=== PATIENT | male | born 1985 | race Caucasian/White ===

== ENCOUNTER 2017-04-06 08:31 | Emergency (ER) | payer OTHER ==
[2017-04-06 09:12] LABS: Hematocrit 45.8 % (42.0-52.0); Hemoglobin 15.7 gm/dL (13.5-18.0); Mean Cell Volume 88.2 fl (78-100); Mean Corpuscular Hemoglobin 30.3 pg (27-31); Mean Corpuscular Hgb Conc 34.3 g/dl (32-36); Mean Platelet Volume 9.9 fl (6.0-9.5); Neutrophil # 4.8 K/mm3 (1.3-6.0); Neutrophil % 63.2 % (42-75.0); Platelet Count 252 K/mm3 (150-450); Red Blood Count 5.19 M/mm3 (4.7-6.0); White Blood Count 7.5 K/mm3 (4.0-10.5)
[2017-04-06 09:33] LABS: ALT 79 U/L (19-67); AST 38 U/L (0-48); Albumin * 4.3 gm/dl (3.4-5.0); Alkaline Phosphatase * 95 U/L (50-170); Anion Gap 14.7 mmol/L (6.8-13.8); Bilirubin, Total 1.3 mg/dL (0.0-1.1); Blood Urea Nitrogen 13 mg/dL (6-23); Ca. Corrected For Albumin 8.4 mg/dL (8.4-10.2); Carbon Dioxide 23.2 mmol/L (24-32.6); Chloride 102 mmol/L (97-106); Glucose * 99 mg/dL (70-110); Potassium 3.9 mmol/L (3.4-4.6); Salicylate Less than 2.8 mg/dL (2.8-20.0); Sodium 136 mmol/L (132-142); TSH * 0.882 uIU/mL (0.358-3.74)
[2017-04-06 09:47] LABS: Urine Bilirubin 1 mg/dl (NEGATIVE); Urine Blood Negative /ul (NEGATIVE); Urine Ketone 5 mg/dL (NEGATIVE); Urine Nitrite Negative (NEGATIVE); Urine Protein Negative (NEGATIVE); Urine Specific Gravity >=1.030 SP.GR. (1.005-1.030); Urine Urobilinogen Normal (NORMAL)
[2017-04-06 09:58] LABS: Urine Appearance Slightly Cloudy; Urine Bacteria 3+; Urine Color Yellow; Urine RBC None Seen /hpf (0-5)
[2017-04-06 10:02] LABS: Cocaine Ur Negative (NEGATIVE); Urine Barbiturate Negative (NEGATIVE); Urine PCP Negative (NEGATIVE)
[2017-04-06 10:04] LABS: Urine Benzodiazepines Positive (NEGATIVE); Urine Opiates Positive (NEGATIVE); Urine THC Positive (NEGATIVE)
--- OUTSIDE RECORDS SUMMARY | 2017-04-06 10:56 | XMS REPORT | Continuity of Care Document ---
:1985 Author Organization [facility] [place] [address] Phone [phone] Care Team Providers Name Role Phone Unavailable Primary Care Provider Unavailable Active Allergies and Adverse Reactions Allergen Noted Date Severity Reactions Comments Codeine 05/20/2011 Current Medications Always verify current medications with the patient because some medications mayno longer be current as of this document. Prescription Sig. Disp. Refills Start Date End Date Status doxycycline (VIBRAMYCIN) Take 1 Cap by 18 Cap 0 05/20/2011 Active 100 MG capsule mouth every 12 hours. Active Problems Problem Noted Date Polysubstance dependence ([facility]) 05/20/2011 Antisocial personality disorder 05/20/2011 Mood disorder ([facility]) 05/20/2011 Social History Tobacco Use Types Packs/Day Years Used Date Never Assessed Last Filed Vital Signs Vital Sign Reading Time Taken Blood Pressure 140/87 05/20/2011 11:51 AM CDT Pulse 70 05/20/2011 11:51 AM CDT Temperature 36.2 C (97.2 F) 05/20/2011 11:51 AM CDT Respiratory Rate 16 05/20/2011 11:51 AM CDT Height 1.778 m (5' 10") 05/20/2011 6:51 AM CDT Weight 104.645 kg (230 lb 11.2 oz) 05/20/2011 6:51 AM CDT Body Mass Index 33.1 05/20/2011 6:51 AM CDT Oxygen Saturation - - Plan of Care Health Maintenance Due Date Last Done Comments McF Hmt Dtap/Tdap/Td Vaccines (1 - Tdap) 02/01/2004 McF Hmt Influenza 06/13/2017 Results from Last 3 Months Not on file
--- OUTSIDE RECORDS SUMMARY | 2017-04-06 10:56 | XMS REPORT | Continuity of Care Document ---
:1985 Author Organization [facility] ([facility]) Address [address] [place] [address] Phone [phone] Care Team Providers Name Role Phone Floyd Russo Primary Care Provider [phone] Source Comments This disclosure is being made pursuant to the Care Everywhere program, applicable federal and state laws, and may not contain all informaitonavailable regarding this patient.[facility] ([facility]) Active Allergies and Adverse Reactions Allergen Noted Date Severity Reactions Comments Codeine Angioedema Iodine Unknown Current Medications Prescription Sig. Disp. Refills Start Date End Date Status lisdexamfetamine Take 30 mg by mouth Active (VYVANSE) 30 mg capsule daily. venlafaxine (EFFEXOR XR) Take 300 mg by Active 150 mg XR capsule mouth daily. depression ZALEPLON (SONATA PO) Take by mouth. 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5 C (97.7 F) 06/16/2013 6:15 PM CDT Respiratory Rate 16 06/16/2013 6:15 PM CDT Height 1.77 m (5' 9.69") 10/29/2012 10:20 AM INFORMATION ANALYST Weight 119.75 kg (264 lb) 10/29/2012 10:20 AM INFORMATION ANALYST Body Mass Index 38.22 10/29/2012 10:20 AM INFORMATION ANALYST Oxygen Saturation 98% 06/16/2013 6:15 PM CDT Plan of Care Health Maintenance Due Date Last Done Comments Hepatitis B Vaccine (1 of 3 - Primary Series) 1985 Tdap Vaccine 02/01/1996 Lipid Disorder Screening 2003 MMR Vaccine 2003 Td Vaccine 2003 Varicella Vaccine (1 of 2 - Adult - No Evidence of 2003 Immunity) Pneumococcal Vaccine (1 of 1 - PPSV23) 02/01/2004 Influenza Vaccine: Seasonal (#1) 06/13/2016 Results from Last 3 Months Not on file
--- NOTE | 2017-04-06 11:07 | ERNOTE ---
Psychological HPI - General Chief Complaint: Psychiatric Problem Source: Reports: patient, other Exam Limitations: Reports: no limitations - Immun/Allergies/Home Medications Allergies/Adverse Reactions: Allergies iodine Allergy (Intermediate, Verified 04/06/17 08:48) Hives codeine [Codeine] Allergy (Verified 04/06/17 08:48) throat swelling naproxen Adverse Reaction (Mild, Verified 04/06/17 08:48) nausea,abdominal pain zolpidem tartrate [From Ambien] Adverse Reaction (Verified 04/06/17 08:48) Home Medications: HOME MEDICATIONS NK [No Home Medication] 04/06/17 [Last Taken Unknown] - History of Present Illness Narrative: Patient is brought to the ER by as he is court committed for serious mental impairment and concerns that he could be harming himself. He has an extensive history of anxiety, drug use and suicide attempts, tired to hang himself once and had multiple overdose attempts. He is still currently using drugs (opiates yesterday, meth and THC two days ago). He denies any current suicidal ideation or plan,feels anxious, denies any current stressors. He lives with his grandmother, does not have a job, has been off his medications as he has not been able to find them. He was dismissed from the local psychiatrist office recently (for cussing in the office?) Time Seen by Provider: 04/06/17 10:46 Arrived by: Reports: police Review of Systems - Review of Systems Constitutional: Absent: recent illness, fever EYE: Absent: vision changes ENT: Absent: nose congestion, sore throat Respiratory: Present: shortness of breath. Absent: cough Cardiology: Absent: chest pain Gastrointestinal/Abdominal: Present: nausea. Absent: vomiting, diarrhea, abdominal pain Genitourinary: Present: no symptoms reported Musculoskeletal: Absent: back pain, neck pain Skin: Absent: rash Neurological: Present: anxiety, tingling - hands and mouth. Absent: headache - Patient's Past Medical History Patient History - Medical: Anxiety, Depression, Other - substance abuse Patient History - Cardiac/Respiratory: Asthma Patient History - Cancer: No Hx of Cancer Patient History - Surgical Procedures: Other Patient History - Other: None - Family History Mother Family History - Medical: Osteoporosis - Social History Living Situations: home Abuse History: No History of abuse Psych History: Hx of Depression, Hx of Bipolar Disorder Smoking Status: Current every day smoker Do you dip or chew tobacco: No Alcohol Use: rarely Drug Use: benzodiazepine, marijuana, meth, other - Immunizations Immunizations Up to Date: Yes Hx Pneumococcal Vaccination: No History of Influenza Vaccine: No Physical Exam - Physical Exam General Appearance: Present: wd/wn, alert, no apparent distress, anxious Eye Exam: Normal inspection: bilateral, PERRL: bilateral Respiratory: Present: no respiratory distress, normal breath sounds, no accessory muscle use, lungs clear Cardiovascular/Chest: Present: regular rate, rhythm, no murmur Gastrointestinal/Abdominal: Present: nontender, soft Extremity Exam: Present: normal inspection Neurological Exam: Present: alert, oriented, other - anxious, cooperative Skin Exam: Present: normal color, warm/dry ED Progress - Results and Orders Patient's Lab Results:: I have reviewed the patient's lab results. - Vital Signs Patient's Vital Signs:: I have reviewed the patient's vital signs. Vital Signs: Vital Signs 04/06/17 09:02 Temperature 37.3 C Pulse Rate 81 Respiratory 20 Rate Blood Pressure 138/96 O2 Sat by Pulse 98 Oximetry - Progress/Reassessment Chief Complaint: Psychiatric Problem Progress Note-Subjective: 04/06/17 10:58 call to psychiatry office, both providers are out of office till 04/11, patient was dismissed form clinic for verbally disruptive and threatening behaviour. 04/06/17 12:49 patient very anxious requesting anxiety medications, was on ativan, will give one dose po Departure Clinical Impression: Suicidal ideation Major depression Qualifiers: Major depression recurrence: recurrent Active/Remission status: currently active Major depression episode severity: severe Psychotic features: without psychotic features Qualified Code(s): F33.2 - Major depressive disorder, recurrent severe without psychotic features UTI (urinary tract infection) Qualifiers: Urinary tract infection type: acute cystitis Hematuria presence: without hematuria Qualified Code(s): N30.00 - Acute cystitis without hematuria - Departure Disposition: Other health care facility Condition: Good
[2017-04-06] MEDS ORDERED: LORazepam 1 MG TABLET PO ONE ×2 (12:49→15:38)
[2017-04-06] MEDS ORDERED: LORazepam 1 MG TABLET ONE ×2 (12:50→15:38)
[2017-04-06] MEDS ORDERED: SULFAMETHOXAZOLE/TRIMETHOPRIM 1 TAB TABLET PO ONE (15:38)
[2017-04-06] MEDS ORDERED: SULFAMETHOXAZOLE/TRIMETHOPRIM 1 TAB TABLET ONE (15:39)
[2017-04-06 16:16] VITALS: BP 185/79
== END 2017-04-06 16:33 | disposition short-term general hospital (02) ==
LOC: ER 08:31
DX: R45.851 Suicidal ideations (principal); F33.2 Major depressive disorder, recurrent severe without psychotic features; N30.00 Acute cystitis without hematuria; F17.200 Nicotine dependence, unspecified, uncomplicated
CPT/HCPCS: 36415; 80053; 80307; 81001; 84443; 85025; 87086; 93005; 99284; G0480; G0481

== ENCOUNTER 2017-07-10 10:51 | Emergency (ER) | payer OTHER ==
[2017-07-10] MEDS ORDERED: NICOTINE 21 MG PATC TD ONE (11:14)
[2017-07-10 11:17] LABS: Urine Bilirubin Negative (NEGATIVE); Urine Blood Negative /ul (NEGATIVE); Urine Ketone Negative (NEGATIVE); Urine Nitrite Negative (NEGATIVE); Urine Protein Negative (NEGATIVE); Urine Specific Gravity <=1.005 SP.GR. (1.005-1.030); Urine Urobilinogen Normal (NORMAL)
[2017-07-10] MEDS: NICOTINE 21 MG PATC TD ONE (11:22)
[2017-07-10 11:26] LABS: Urine Appearance Clear; Urine Bacteria None Seen; Urine Color Yellow; Urine RBC None Seen /hpf (0-5)
[2017-07-10 11:28] LABS: Cocaine Ur Negative (NEGATIVE); Urine Barbiturate Negative (NEGATIVE); Urine Benzodiazepines Negative (NEGATIVE); Urine Opiates Negative (NEGATIVE); Urine PCP Negative (NEGATIVE); Urine THC Negative (NEGATIVE)
[2017-07-10] MEDS ORDERED: lamoTRIgine 100 MG TABLET PO SCH (11:30)
--- NOTE | 2017-07-10 11:32 | ERNOTE ---
Psychological HPI - General Chief Complaint: Psychiatric Problem Source: Reports: patient Exam Limitations: Reports: no limitations - Immun/Allergies/Home Medications Allergies/Adverse Reactions: Allergies iodine Allergy (Intermediate, Verified 07/10/17 10:59) Hives codeine [Codeine] Allergy (Verified 07/10/17 10:59) throat swelling naproxen Adverse Reaction (Mild, Verified 07/10/17 10:59) nausea,abdominal pain zolpidem tartrate [From Ambien] Adverse Reaction (Verified 07/10/17 10:59) Home Medications: HOME MEDICATIONS ALPRAZolam [Xanax] 1 mg PO TID PRN #60 tab 07/10/17 [Last Taken Unknown] ALPRAZolam [Xanax] 2 mg PO TID PRN 07/10/17 [Last Taken Unknown] Venlafaxine HCl [Effexor] 75 mg PO DAILY #14 tablet 07/10/17 [Last Taken Unknown ] traZODone HCL [Trazodone HCl] 50 mg PO HS 07/10/17 [Last Taken Unknown] - History of Present Illness Narrative: Patient is a known borderline personality disorder with components of bipolar disorder as well. He has been out of his medications for approximately 2-3 months and his behaviors become somewhat erratic. He was running a low on his medications in March and became very distraught and acted inappropriately with Dr. Ramos's office over the phone. Because of that he was terminated from their practice and has been without his medications ever since. Patient was seen by the court today and the card assembler ordered at least an evaluation of some sort and an attempt to try to get him back on his medications. Time Seen by Provider: 07/10/17 11:03 Arrived by: Reports: private car Onset/duration: Reports: gradual onset Intent: Reports: other - basically escalating anxiety Situational Problems: Reports: legal problems Associated Symptoms: Reports: other - anxiety Review of Systems - Review of Systems Constitutional: Present: See HPI EYE: Present: no symptoms reported ENT: Present: no symptoms reported Respiratory: Present: no symptoms reported Cardiology: Present: no symptoms reported Gastrointestinal/Abdominal: Present: no symptoms reported Genitourinary: Present: no symptoms reported Musculoskeletal: Present: no symptoms reported Skin: Present: no symptoms reported Neurological: Present: no symptoms reported Endocrine: Present: no symptoms reported Hematologic/Lymphatic: Present: no symptoms reported Psych: Present: See HPI, anxiety, emotional problems - Patient's Past Medical History Patient History - Medical: Anxiety, Depression, Other - borderline personality disorder, bipolar disorder Patient History - Cardiac/Respiratory: Asthma Patient History - Cancer: No Hx of Cancer Patient History - Surgical Procedures: Other Patient History - Other: None - Family History Mother Family History - Medical: Osteoporosis - Social History Living Situations: home Abuse History: No History of abuse Psych History: Hx of Depression, Hx of Bipolar Disorder Alcohol Use: rarely Drug Use: benzodiazepine, marijuana, meth, other - Immunizations Immunizations Up to Date: Yes Hx Pneumococcal Vaccination: No History of Influenza Vaccine: No Physical Exam - Physical Exam General Appearance: Present: wd/wn, alert, mild distress Eye Exam: Normal inspection: bilateral, PERRL: bilateral Ears, Nose, Throat: Present: normal ENT inspection, H, normal pharynx Neck: Present: normal inspection, nontender Respiratory: Present: no respiratory distress, normal breath sounds, no accessory muscle use, chest nontender, lungs clear Cardiovascular/Chest: Present: regular rate, rhythm, no murmur, normal peripheral pulses Gastrointestinal/Abdominal: Present: normal bowel sounds, nontender, nondistended, soft, no organomegaly Rectal Exam: Present: deferred Back Exam: Present: normal inspection, normal range of motion Extremity Exam: Present: normal inspection, non-tender, no edema, normal range of motion Neurological Exam: Present: alert, oriented, other - patient appears to be very anxious with almost pressured speech Skin Exam: Present: normal color, warm/dry Lymphatic Exam: Present: no adenopathy ED Progress - Results and Orders Patient's Lab Results:: I have reviewed the patient's lab results. - Vital Signs Patient's Vital Signs:: I have reviewed the patient's vital signs. Vital Signs: Vital Signs 07/10/17 10:54 Temperature 36.4 C L Pulse Rate 84 Respiratory 12 Rate Blood Pressure 146/84 O2 Sat by Pulse 98 Oximetry - Progress/Reassessment Chief Complaint: Psychiatric Problem Progress:: Improved Plan - Plan Plan: Patient had a good long discussion with Kerri from [facility] and she feels that the patient is safe to go home. She agrees that he needs to get into some form of therapy and he needs to get back on his medications. Patient states that he felt the best when he was on Effexor and Xanax and will write a prescription for that. He is going to get an appointment within the next 2 weeks and hopefully get him into some form of therapy and we can get some help. Patient is not a threat to himself or others and mother is here and agrees to assist in the dispensing of his medications. Departure Clinical Impression: Borderline personality disorder, PTSD (post-traumatic stress disorder) - Departure Disposition: Home self-care Condition: Good Instructions: Borderline Personality Disorder Prescriptions: ALPRAZolam [Xanax] 1 mg PO TID PRN #60 tab PRN Reason: Anxiety Venlafaxine HCl [Effexor] 75 mg PO DAILY #14 tablet
[2017-07-10] MEDS ORDERED: FAMOTIDINE 20 MG TABLET ONE (11:40)
[2017-07-10] MEDS ORDERED: ALPRAZolam 1 MG TABLET ONE (11:50)
[2017-07-10] MEDS: FAMOTIDINE 20 MG TABLET PO ONE (11:53)
[2017-07-10] MEDS: ALPRAZolam 0.25 MG TABLET PO ONE (11:53)
[2017-07-10] MEDS: lamoTRIgine 100 MG TABLET PO ONE (12:17)
[2017-07-10 19:39] VITALS: BP 132/82
== END 2017-07-10 19:43 | disposition home or self-care (01) ==
LOC: ER 10:51
DX: F60.3 Borderline personality disorder (principal); F43.10 Post-traumatic stress disorder, unspecified; F41.8 Other specified anxiety disorders

== ENCOUNTER 2017-09-26 09:31 | Emergency (ER) | payer SELFPAY ==
[2017-09-26 09:50] VITALS: BP 160/93
--- NOTE | 2017-09-26 10:22 | ERNOTE ---
Psychological HPI - General Chief Complaint: Psychiatric Problem Source: Reports: patient Exam Limitations: Reports: no limitations - Immun/Allergies/Home Medications Allergies/Adverse Reactions: Allergies iodine Allergy (Intermediate, Verified 07/10/17 10:59) Hives codeine [Codeine] Allergy (Verified 07/10/17 10:59) throat swelling naproxen Adverse Reaction (Mild, Verified 07/10/17 10:59) nausea,abdominal pain zolpidem tartrate [From Ambien] Adverse Reaction (Verified 07/10/17 10:59) Home Medications: HOME MEDICATIONS ALPRAZolam [Xanax] 1 mg PO TID PRN #60 tab 07/10/17 [Last Taken Unknown] ALPRAZolam [Xanax] 2 mg PO TID PRN 07/10/17 [Last Taken Unknown] Venlafaxine HCl [Effexor] 75 mg PO DAILY #14 tablet 07/10/17 [Last Taken Unknown ] traZODone HCL [Trazodone HCl] 50 mg PO HS 07/10/17 [Last Taken Unknown] - History of Present Illness Narrative: Patient had a [id number] court ordered committal for evaluation and he was at the courthouse on another business and the deputy of counter intelligence brought him into the emergency room to enforce the committal orders. Patient states that he is neither homicidal or suicidal and that he has been seeing [facility] as an outpatient and been doing very well. Time Seen by Provider: 09/26/17 09:42 Arrived by: Reports: police Onset/duration: Reports: gone now Intent: Reports: other - none Prior Treament: Reports: recently seen Review of Systems - Review of Systems Constitutional: Present: no symptoms reported EYE: Present: no symptoms reported ENT: Present: no symptoms reported Respiratory: Present: no symptoms reported Cardiology: Present: no symptoms reported Gastrointestinal/Abdominal: Present: no symptoms reported Genitourinary: Present: no symptoms reported Musculoskeletal: Present: no symptoms reported Skin: Present: no symptoms reported Neurological: Present: no symptoms reported Endocrine: Present: no symptoms reported Hematologic/Lymphatic: Present: no symptoms reported Psych: Present: no symptoms reported - Patient's Past Medical History Patient History - Medical: Anxiety, Depression, Other - borderline personality disorder Patient History - Cardiac/Respiratory: Asthma Patient History - Cancer: No Hx of Cancer Patient History - Surgical Procedures: Other, Orthopedic Patient History - Other: None - Family History Mother Family History - Medical: Osteoporosis - Social History Living Situations: home Abuse History: No History of abuse Psych History: Hx of Anxiety, Hx of Depression, Hx of Bipolar Disorder, Current tx/ever been on anti-depressants or anti-anxiety meds Smoking Status: Current every day smoker Have you smoked in the past 12 months: Yes Alcohol Use: none Drug Use: marijuana - Immunizations Immunizations Up to Date: Yes Hx Pneumococcal Vaccination: No History of Influenza Vaccine: No Psychological Exam - Exam General Appearance: Present: wd/wn, alert, no apparent distress Head Exam: Present: normal inspection, no evidence of injury Neurological: Present: alert, normal mood/affect, calm, awning erector II-XII nml as tested , oriented x 3 Thoughts/Hallucinations: Present: normal thought pattern Behavior/Eye Contact/Speech: Present: cooperative, good eye contact, normal speech ENT Exam normal except (see below): Yes Ears, Nose, Throat: Present: normal ENT inspection Neck: Present: normal inspection Respiratory: Present: no respiratory distress Cardiovascular/Chest: Present: regular rate, rhythm, no murmur Gastrointestinal/Abdominal: Present: normal bowel sounds, nontender, nondistended, soft Rectal Exam: Present: deferred Male Genitals Exam: Present: deferred Back Exam: Present: normal inspection Extremity Exam: Present: normal inspection Skin Exam: Present: normal color, warm/dry Lymphatic Exam: Present: no adenopathy ED Progress - Vital Signs Patient's Vital Signs:: I have reviewed the patient's vital signs. Vital Signs: Vital Signs 09/26/17 09:42 Temperature 36.8 C Pulse Rate 97 Respiratory 16 Rate Blood Pressure 160/93 O2 Sat by Pulse 97 Oximetry - Progress/Reassessment Chief Complaint: Psychiatric Problem Plan - Plan Plan: While the patient will be somewhat problematic given the underlying borderline personality disorder, anxiety and depression, he appears to be fairly stable at this point. He has been seen in outpatient counseling services, doing very well on his Effexor and Xanax. Patient states she has not had any problems since this court ordered evaluation was determined necessary roughly a month ago. I have seen this patient in the past and he appears to be at his fairly stable baseline and has sent paperwork to the Court stating that he can likely be discharged and continue with [facility]. Paperwork was just received the cords the patient is stable for discharge he agrees to keep his impending court date and is discharged in stable condition. Departure Clinical Impression: Borderline personality disorder Major depression Qualifiers: Major depression recurrence: recurrent Active/Remission status: in remission of unspecified degree Qualified Code(s): F33.40 - Major depressive disorder, recurrent, in remission, unspecified - Departure Disposition: Home self-care Condition: Good Instructions: Borderline Personality Disorder Additional Instructions: be sure to keep your upcoming court date Referrals: Darrion Green DO [Primary Care Provider] -
[2017-09-26] MEDS ORDERED: ALPRAZolam 0.25 MG TABLET PO ONE (10:52)
[2017-09-26] MEDS ORDERED: ALPRAZolam 0.25 MG TABLET ONE (10:59)
[2017-09-26] MEDS ORDERED: NICOTINE 21 MG PATC TD ONE (13:50)
[2017-09-26] MEDS ORDERED: NICOTINE 21 MG PATC TD SCH (14:00)
== END 2017-09-26 14:35 | disposition home or self-care (01) ==
LOC: ER 09:31
DX: Z04.6 Encounter for general psychiatric examination, requested by authority (principal); F60.3 Borderline personality disorder; F33.40 Major depressive disorder, recurrent, in remission, unspecified